=== PATIENT | male | born 1965 | race Hispanic/Latino ===

== ENCOUNTER 2017-09-07 08:56 | Emergency (ER) | payer OTHER ==
--- NOTE | 2017-09-07 09:54 | Emergency Department Report ---
ED Trauma HPI - General Chief Complaint: Multiple Trauma Stated Complaint: TRAUMA LOC Time Seen by Provider: 09/07/17 09:54 - History of Present Illness Initial Comments: Patient is a 52-year-old male who works for [employer] who is presenting status post blunt injury resulting in a syncopal episode. 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 Patient does not remember this incident is what was reported by EMS and his general supervisor. Patient when he was found once a day down to his feet had another syncopal episode after. Patient is awake and alert at this time and has no complaints while sitting still. Patient states that he has some mild discomfort in the neck and back with movement. Occurred: just prior to arrival Severity: mild Method of Injury: direct blow Loss of Consciousness: prolonged (minutes) Allergies/Adverse Reactions: Allergies Tetanus Vaccines and Toxoid Adverse Reaction (Verified 09/07/17 09:42) Unknown Home Medications: Ambulatory Orders Ibuprofen [Motrin] 800 mg PO Q8HR PRN #15 tablet 09/07/17 traMADol [Ultram] 50 mg PO Q4HR PRN #10 tablet 09/07/17 ED Review of Systems ROS: Stated complaint: TRAUMA LOC Other details as noted in HPI Comment: All other systems reviewed and negative ED Past Medical Hx - Past Medical History Hx Diabetes: Yes (insuulin) Additional medical history: hypothyroid - Surgical History Past Surgical History?: Yes Additional Surgical History: Hernia - Social History Smoking Status: Never Smoker Substance Use Type: None - Medications Home Medications: Home Medications Medication Instructions Recorded Confirmed Last Taken Type Ibuprofen [Motrin] 800 mg PO Q8HR PRN #15 tablet 09/07/17 Unknown Rx traMADol [Ultram] 50 mg PO Q4HR PRN #10 tablet 09/07/17 Unknown Rx ED Physical Exam - General Limitations: No Limitations General appearance: alert, in no apparent distress - Head Head exam: Present: atraumatic, normocephalic - Eye Eye exam: Present: normal appearance - ENT ENT exam: Present: mucous membranes moist - Neck Neck exam: Present: normal inspection - Respiratory Respiratory exam: Present: normal lung sounds bilaterally. Absent: respiratory distress - Cardiovascular Cardiovascular Exam: Present: regular rate, normal rhythm. Absent: systolic murmur, diastolic murmur, rubs, gallop - GI/Abdominal GI/Abdominal exam: Present: soft, normal bowel sounds - Rectal Rectal exam: Present: deferred - Extremities Exam Extremities exam: Present: normal inspection - Back Exam Back exam: Present: normal inspection - Neurological Exam Neurological exam: Present: alert, oriented X3 - Psychiatric Psychiatric exam: Present: normal affect, normal mood - Skin Skin exam: Present: warm, dry, intact, normal color. Absent: rash ED Course Vital Signs 09/07/17 09/07/17 09:36 12:31 Temperature 98.0 F Pulse Rate 89 74 Respiratory 18 16 Rate Blood Pressure 149/101 Blood Pressure 135/79 [Left] O2 Sat by Pulse 95 97 Oximetry ED Medical Decision Making - Lab Data Result diagrams: 09/07/17 09:55 09/07/17 10:57 - Radiology Data Radiology results: report reviewed CT of the head and C-spine chest and abdomen were all negative for acute process Critical care attestation.: If time is entered above; I have spent that time in minutes in the direct care of this critically ill patient, excluding procedure time. ED Disposition Clinical Impression: Musculoskeletal pain Closed head injury Qualifiers: Encounter type: initial encounter Qualified Code(s): S09.90XA - Unspecified injury of head, initial encounter Disposition: - TO HOME OR SELFCARE Is pt being admited?: No Does the pt Need Aspirin: No Condition: Stable Instructions: Musculoskeletal Pain (ED), RICE Therapy (ED) Prescriptions: Ibuprofen [Motrin] 800 mg PO Q8HR PRN #15 tablet PRN Reason: Pain traMADol [Ultram] 50 mg PO Q4HR PRN #10 tablet PRN Reason: Pain
[2017-09-07] MEDS ORDERED: TORADOL IV ONE (09:56)
[2017-09-07] MEDS ORDERED: ZOFRAN IV ONE (09:56)
[2017-09-07 10:22] LABS: Basophils # (Auto) 0.1 K/mm3 (0.0-0.1); Basophils % (Auto) 1.1 % (0.0-1.8); Eosinophils # (Auto) 0.1 K/mm3 (0.0-0.4); Eosinophils % (Auto) 1.4 % (0.0-4.3); Hematocrit 48.6 % (35.5-45.6); Hemoglobin 16.3 gm/dl (11.8-15.2); Lymphocytes # (Auto) 1.4 K/mm3 (1.2-5.4); Lymphocytes % (Auto) 19.8 % (13.4-35.0); Mean Corpuscular HGB Conc 34 % (32-34); Mean Corpuscular Hemoglobin 30 pg (28-32); Mean Corpuscular Volume 88 fl (84-94); Monocytes # (Auto) 0.4 K/mm3 (0.0-0.8); Monocytes % (Auto) 5.2 % (0.0-7.3); Platelet Count 234 K/mm3 (140-440); Red Blood Count 5.51 M/mm3 (3.65-5.03)
[2017-09-07 11:32] LABS: BUN/Creatinine Ratio 18; Blood Urea Nitrogen 16 mg/dL (9-20); Calcium 9.1 mg/dL (8.4-10.2); Hemolysis Index 185
[2017-09-07 12:36] VITALS: BP 135/79
--- NOTE | 2017-09-07 13:08 | Cat Scan Report ---
CT HEAD WITHOUT CONTRAST INDICATION: Trauma. COMPARISON: None similar at this institution. FINDINGS: Noncontrast head CT demonstrates normal ventricles and slight sulcal prominence superiorly without acute or recent infarct, hemorrhage, mass effect or midline shift. No abnormal extra-axial fluid collections. Cavum septum pellucidum and vergae. Posterior fossa structures and basilar cisterns appear within normal limits. Mild leftward nasal septal deviation. Slight left frontoethmoid mucosal thickening. Clear remainder imaged paranasal sinuses and mastoid air cells. Intact calvarium. Normal overlying scalp soft tissues. Numerous radiopaque dental material incidentally noted. CONCLUSION: No acute intracranial CT abnormality, as described. Thank you for the opportunity to participate in this patient's care.
--- NOTE | 2017-09-07 13:13 | Cat Scan Report ---
CT CERVICAL SPINE WITHOUT CONTRAST INDICATION: Trauma. COMPARISON: None similar. FINDINGS: Noncontrast axial, sagittal and coronal CT reconstructions through the cervical spine demonstrate normal imaged intracranial appearance. Streak artifact from few radiopaque dental material. Assessment of the spinal canal itself also compromised from C4 inferiorly due to shoulder soft tissue artifact. Intact craniocervical articulation, dens, prevertebral soft tissues and the posterior elements. Normal vertebral body stature with mild degenerative spurring from C4-C7. Patent airway. Normal imaged thyroid. Clear lung apices. On the obtained axial images: C2-C3 demonstrates mild right facet arthropathy. C3-C4 suggests mild facet arthropathy, more so on the right. C4-C5 is unremarkable. C5-C6 demonstrates left more than right uncovertebral spurring with possible neural foraminal narrowing. C6-C7 demonstrates right more than left uncovertebral spurring with moderate to severe right and mild left neural foraminal narrowing. C7-T1 demonstrates mild bilateral facet arthropathy. CONCLUSION: No acute cervical spine CT abnormality with multilevel degenerative changes, as above. Thank you for the opportunity to participate in this patient's care.
--- NOTE | 2017-09-07 13:27 | Cat Scan Report ---
FINAL REPORT EXAM: CT CHEST W CON HISTORY: trauma TECHNIQUE: A CT of the chest was performed from thoracic inlet to diaphragm. 100 cc Omnipaque 300 IV was administered. Coronal and sagittal reformatted images were obtained. PRIORS: None. FINDINGS: There is no significant mediastinal or hilar mass seen. There is no mediastinal hemorrhage or abnormal mediastinal air seen. There are no pleural effusions seen. There is some dependent atelectasis at the lung bases. There are no acute infiltrates seen. There is no pneumothorax seen. The visualized osseous structures appear intact. IMPRESSION: There is no acute posttraumatic abnormality seen in the chest.
--- NOTE | 2017-09-07 14:15 | Cat Scan Report ---
FINAL REPORT EXAM: CT ABDOMEN PELVIS W CON HISTORY: trauma TECHNIQUE: CT abdomen and pelvis performed. Images extend from diaphragm to pubic symphysis. 100 cc Omnipaque 300 IV was administered. No oral contrast was administered. Coronal and sagittal reformatted images were obtained. PRIORS: None. FINDINGS: There is fatty infiltration of the liver. There is no evidence of acute solid organ injury. There are 2 nonobstructing right intrarenal calculi. The larger measures up to 10 mm. There is a 9 mm nonobstructing left intrarenal calculus. There is no hydronephrosis or obstructive uropathy seen. There is no abdominal aortic aneurysm. There is no evidence of intestinal obstruction. The appendix is normal. There is no free intraperitoneal air. There are no abnormal fluid collections seen. There is minimal sigmoid diverticulosis. There is no evidence of acute diverticulitis. The bladder is unremarkable. The visualized osseous structures appear intact. There is prominent L5-S1 degenerative disc disease. IMPRESSION: There is no acute posttraumatic abnormality seen. There are bilateral nonobstructing intrarenal calculi. There is fatty infiltration of the liver.
== END 2017-09-07 14:15 | disposition home or self-care (01) ==
LOC: ED 08:56
DX: S09.8XXA Other specified injuries of head, initial encounter (principal); M54.2 Cervicalgia; E11.9 Type 2 diabetes mellitus without complications; M54.9 Dorsalgia, unspecified; E03.9 Hypothyroidism, unspecified; Z88.8 Allergy status to other drugs, medicaments and biological substances; W22.03XA Walked into furniture, initial encounter; Y93.89 Activity, other specified; Y92.89 Other specified places as the place of occurrence of the external cause; Y99.8 Other external cause status
CPT/HCPCS: 36415; 70450; 71260; 72125; 74177; 80048; 82962; 85025; 96374; 96375; 99284; J1885; J2405; Q9967